=== PATIENT | male | born 2000 | race Two or more races ===

== ENCOUNTER 2024-11-18 09:47 | Emergency (ER) | payer MEDICAID, OTHER ==
[~2024-11-18] VITALS: Ht 180.3 cm; Wt 81.0 kg
--- NOTE | 2024-11-18 11:26 | ED.PDOC ---
HPI (NEURO) HPI Comments 24-year-old male with no past MHx presents to the emergency department with a chief complaint of a headache s/p head injury onset 3 days. Patient states he was playing mini golf, bent over to mushroom picker a ball, when he hit the back of his head with a statue. Patient is currently experiencing a headache, described as a throbbing sensation, as well as dizziness, rates pain 3/10, has taken Tylenol for pain with no relief of symptoms. He went to urgent care, was sent to ED to rule out intracranial bleeding. No other symptoms or modifying factors present at this time. Denies fever, chills, night sweats Denies persistent nausea Denies vomiting Denies photophobia, phonophobia Denies family history of brain issues persistent headaches Denies taking any blood thinner medication Chief Complaint: Head Injury Time Seen by MD: 11:15 Reviewed Notes: Medications, Allergies Information Source: Patient Mode of Arrival: Ambulatory Severity: Moderate Headache Severity: Moderate Timing: Days Duration: Since onset Prehospital treatment: Pain Meds (tyenol) Headache Quality: Throbbing Headache Location: Generalized Circumstances: Trauma Symptoms: Other History of: None Associated Signs and Symptoms: Headache Past Medical History PAST MEDICAL HISTORY: Denies Surgical History: Denies all surgeries Family History Family History: Reviewed,noncontributory to illness, No family hx of Cancer, No family hx of DM, No family hx of Heart pia, No family hx of HTN, No family hx ofKidney pia, No family hx of Liver pia, No family hx of Lung pia, No family hx of Stroke Social History Smoker: Non-Smoker Alcohol: Denies ETOH Use Drugs: Denies Drug Use Lives In: Home All Other Systems: Reviewed and Negative (as per HPI) Physical Exam General Appearance: Normal HEENT: Normal ENT Inspection, Pharynx Normal, TMs Normal Neck: Full Range of Motion, Non-Tender, Normal, Normal Inspection Respiratory: Chest Non-Tender, Lungs Clear, No Accessory Muscle Use, No Respiratory Distress, Normal Breath Sounds Cardiovascular: No Edema, No JVD, No Murmur, No Gallop, Normal Peripheral Pulses, Regular Rate/Rhythm Breast Exam: Deferred Gastrointestinal: No Organomegaly, Non Tender, No Pulsatile Mass, Normal Bowel Sounds, Soft Genitalia: Deferred Pelvic: Deferred Rectal: Deferred Extremities: No calf tenderness, Normal capillary refill, Normal inspection, Normal range of motion, Non-tender, No pedal edema Musculoskeletal : Apperance: Normal Neurologic: Alert, appellate conferee II-XII nml as Tested, No Motor Deficits, Normal Affect, Normal Mood, No Sensory Deficits Cerebellar Function: Normal Reflexes: Normal Skin: Dry, Normal Color, Warm Lymphatic: No Adenopathy Was a procedure done? Was a procedure done?: No X-Ray, Labs, Meds, VS Vital Signs Date Time Temp Pulse Resp B/P (MAP) Pulse Ox O2 Delivery O2 Flow Rate FiO2 11/18/24 11:28 60 18 99 Room Air 11/18/24 11:28 98.3 60 18 114/81 (92) 99 98.3 11/18/24 09:49 97.2 59 18 119/89 100 97.2 X-Ray, Labs, Meds, VS Comment 24-year-old male with no past MHx presents to the emergency department with a chief complaint of a headache s/p head injury onset 3 days. Patient arrives alert and oriented, ABC's intact, afebrile, vital signs stable, saturating well in room air Diagnostic imaging ordered by me and results interpreted by radiology : Ct head WO contrast: The following differential diagnoses were considered for this patient; subdural hematoma, subarachnoid hemorrhage, epidural hematoma, intraparenchymal bleed, herniation, skull fracture. The patient had a computed tomography of their head without any evidence of acute intracranial abnormality as per radiology. The patient is neurologically intact by exam and is able to ambulate without difficulty. A complete exam ination does not reveal any other related injury at this time. The patient is not currently utilizing any anticoagulants. The patient is advised to use tylenol as needed for pain. The patient is instructed to follow up their primary care physician as needed or return to ER if vomiting or worsening headache occurs. The patient was counseled in regards to the diagnosis and management of the condition and verbalized understanding of this. Additional MDM Review of External, Non-ED records: External records reviewed. Discussion with independent historian (EMS, family) history obtained from the patient/parents (if applicable) at bedside Chronic conditions affecting care: None Social determinants of health affecting care: None I considered escalation of care to admission for this patient, however given the reassuring workup, the patient is safe for outpatient management. On reevaluation, patient had symptomatic improvement. Patient is stable for discharge at this time. External notes reviewed. Test results and diagnostic imaging interpreted. All diagnostic findings, discharge care, education and instructions provided Follow-up with PCP in 2 to 3 days Patient verbalized understanding and agreed to treatment plan Vital signs stable, afebrile, no acute distress noted Patient ambulatory with strong steady gait Advised to return precautions for any new or worsening symptoms, return to ER immediately for re-evaluation Patient is aware that the purpose of this visit was for an acute medical emergency requiring emergent stabilization. Chronic conditions, including malignancies have not been ruled out. Patient is instructed to follow up with PCP as directed and discharge instructions for continued care and workup. If unable to arrange follow-up, patient is to return to the emergency department for reassessment. Patient (parent or legal guardian if applicable) was given verbal and written discharge instructions and acknowledges understanding. Time of 1ST Reevaluation: 11:45 Reevaluation 1ST: Improved Patient Education/Counseling: Diagnosis, Treatment Family Education/Counseling: No Family Present Departure 1 Departure Time of Disposition: 11:40 Impression: Primary Impression: Blunt head injury Qualified Codes: S09.8XXA - Other specified injuries of head, initial encounter Disposition: 01 HOME / SELF CARE / HOMELESS Condition: Stable Discharged With: Self Critical Care Note Critical Care Time?: No Stability Stability form required: No Heart Score Heart Score: Heart Score Response (Comments) Value History N/A 0 EKG N/A 0 Age N/A 0 Risk Factors N/A 0 Troponin N/A 0 Total 0 I personally scribed for KUSH BARRY NP ([email or web address]) on 11/18/24 at 11:26. Electronically submitted by Alesia Singh ([email or web address]). KUSH BARRY NP Nov 18, 2024 11:26
[2024-11-18 11:28] VITALS: BP 114/81; PULSE 60; RESP 18; TEMP 98.3; O2SAT 99
--- NOTE | 2024-11-18 11:38 | DVH ---
EXAM: CT HEAD WITHOUT CONTRAST HISTORY: blunt head injury. sent from COMPARISON: None TECHNIQUE: Noncontrast axial CT images of the head were performed. Sagittal and coronal reformatted i mages were obtained. This CT exam was performed using 1 or more of the following dose reduction techn iques: Automated exposure control, adjustment of the mA and/or kv according to patient size, or the u se of iterative reconstruction techniques. Radiation Dose: CTDI volume is 57.31 mGy. Dose-length product is 1127.7 mGy*cm FINDINGS: No intracranial hemorrhage, mass, midline shift, hydrocephalus, or evidence of acute large vessel inf arct. There is a small mucous retention cyst in the right maxillary sinus. There are bilateral conch a bullosa. There is adenoid tonsillar hypertrophy without significant narrowing of the nasopharyngea l airway. The bilateral mastoid air cells and middle ear spaces are clear. No cranial fracture. Ther e may be mild high parietal scalp edema. IMPRESSION: 1. No acute intracranial process. 2. Mild right maxillary sinus disease. 3. No cranial fracture.
== END 2024-11-18 11:52 | disposition home or self-care (01) ==
LOC: ER 09:47
DX: S09.8XXA Other specified injuries of head, initial encounter (principal); W21.04XA Struck by golf ball, initial encounter; Y93.89 Activity, other specified; Y92.89 Other specified places as the place of occurrence of the external cause; Y99.8 Other external cause status
CPT/HCPCS: 70450